=== PATIENT | male | born 1955 | race Caucasian/White ===

== ENCOUNTER 2017-10-30 11:22 | Emergency (ER) | payer BC ==
[2017-10-30] MEDS ORDERED: Albuterol/Ipratropium 3.0-0.5 MG/3 ML Neb Soln NEB ONE (12:00)
[2017-10-30] MEDS ORDERED: predniSONE 20 MG Tab PO STA (12:01)
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
[2017-10-30] MEDS ORDERED: Diltiazem 25 MG/5 ML SDV IVPUSH STA (12:39)
[2017-10-30] MEDS ORDERED: Diltiazem 125 MG in Sodium Chloride 0.9% 100 ML IV SCH (12:45)
[2017-10-30] MEDS ORDERED: Rivaroxaban 10 MG Tab PO STA (13:03)
== END 2017-10-30 13:30 | disposition home or self-care (01) ==
LOC: JD.ED 11:22
DX: J45.901 Unspecified asthma with (acute) exacerbation (principal); M06.9 Rheumatoid arthritis, unspecified; I48.91 Unspecified atrial fibrillation; I10 Essential (primary) hypertension; K21.9 Gastro-esophageal reflux disease without esophagitis; Z79.899 Other long term (current) drug therapy; Z87.442 Personal history of urinary calculi
CPT/HCPCS: 93005; 94640; 99285; A9270; 93010

== ENCOUNTER 2017-10-31 00:31 | Inpatient (IN) | payer BC ==
[2017-10-31] MEDS ORDERED: Diltiazem 25 MG/5 ML SDV IVPUSH ONE ×2 (00:56→02:25)
[2017-10-31] MEDS ORDERED: Diltiazem 125 MG/25 ML SDV ONE (01:03)
[2017-10-31] MEDS ORDERED: oxyCODONE 5 MG Tab PO ONE (01:32)
[2017-10-31] MEDS ORDERED: Verapamil 120 MG Tab.ER PO ONE (02:22)
--- NOTE | 2017-10-31 02:22 | EDM.PDOC ---
ED HPI GENERAL MEDICAL PROBLEM - General Chief Complaint: Cardiovascular Problem Stated Complaint: AFIB ISSUES SOB Time Seen by Provider: 10/31/17 00:35 - History of Present Illness INITIAL COMMENTS - FREE TEXT/NARRATIVE: 62-year-old male presents to the emergency room with problems with his A. fib. The patient's pulse is been running quite high for several days probably longer he was seen by his information management manager yesterday and he was noted to have a very high pulse rate is information management manager wanted to admit him to the hospital. The patient is not having any chest pressure or any discomfort with this he feels weaker than normal. He was restarted on his Zaroxolyn yesterday it is uncertain why he was off anticoagulation for a while. Back Pain Score (Numeric/FACES): 7 - Related Data Allergies Allergy/AdvReac Type Severity Reaction Status Date / Time No Known Allergies Allergy Verified 10/31/17 00:38 Home Meds: Home Meds Adalimumab [Humira] 40 mg INJECT ASDIRECTED 10/30/17 [History] Albuterol [Ventolin HFA] 1 - 2 puff INH ASDIRECTED PRN 10/30/17 [History] Calcium Carbonate [Calcium] 1,000 mg PO DAILY 10/30/17 [History] Cholecalciferol (Vitamin D3) [Vitamin D3] 10,000 unit PO DAILY 10/30/17 [History ] Cyclobenzaprine [Flexeril] 10 mg PO DAILY 10/30/17 [History] Fluconazole [Diflucan] 200 mg PO DAILY 10/30/17 [History] Folic Acid 3 mg PO DAILY 10/30/17 [History] Hydrocortisone 30 mg PO TID 10/30/17 [History] Leflunomide 20 mg PO DAILY 10/30/17 [History] Omeprazole 20 mg PO BID 10/30/17 [History] Potassium Chloride 10 meq PO BID 10/30/17 [History] Pregabalin [Lyrica] 15 mg PO DAILY 10/30/17 [History] Rivaroxaban [Xarelto] 1 tab PO DAILY #15 tablet 10/30/17 [Rx] Sennosides/Docusate Sodium [Senna-S] 8.6 mg PO ASDIRECTED 10/30/17 [History] Tamsulosin [Flomax] 0.4 mg PO DAILY 10/30/17 [History] Torsemide 100 mg PO DAILY 10/30/17 [History] Valsartan 320 mg PO DAILY 10/30/17 [History] Verapamil [Calan SR] 180 mg PO BID 10/30/17 [History] oxyCODONE 15 mg PO ASDIRECTED 10/30/17 [History] oxyCODONE HCl [oxyCODONE] 30 mg PO ASDIRECTED 10/30/17 [History] predniSONE [Prednisone] 1 tab PO DAILY #5 tablet 10/30/17 [Rx] Past Medical History HEENT History: Reports: None Cardiovascular History: Reports: Afib, Hypertension Respiratory History: Reports: Asthma, Sleep Apnea Gastrointestinal History: Reports: GERD Genitourinary History: Reports: BPH, Renal Calculus Musculoskeletal History: Reports: RA Other Musculoskeletal History: 4 back surgeries and fusion of back Neurological History: Reports: None 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, Obesity/BMI 30+ Other Endocrine/Metabolic History: gammaglobulin defieciency Immunologic History: Reports: Immunosuppression - Past Surgical History HEENT Surgical History: Reports: Oral Surgery, Tonsillectomy Cardiovascular Surgical History: Reports: None Respiratory Surgical History: Reports: None GI Surgical History: Reports: None Endocrine Surgical History: Reports: None Neurological Surgical History: Reports: C-Spine, Lumbar Spine, Other (See Below) Musculoskeletal Surgical History: Reports: Other (See Below) Other Musculoskeletal Surgeries/Procedures:: L4-L5 fusion, Social & Family History - Family History Family Medical History: Noncontributory - Tobacco Use Smoking Status *Q: Never Smoker - Caffeine Use Caffeine Use: Reports: Coffee - Recreational Drug Use Recreational Drug Use: No - Living Situation & Occupation Living situation: Reports: , with Spouse Occupation: Employed (Safety HSE) ED ROS GENERAL - Review of Systems Review Of Systems: See Below Constitutional: Reports: No Symptoms HEENT: Reports: No Symptoms Respiratory: Reports: No Symptoms Cardiovascular: Reports: Dyspnea on Exertion. Denies: Chest Pain, Palpitations , Syncope Endocrine: Reports: No Symptoms GI/Abdominal: Reports: No Symptoms : Reports: No Symptoms Musculoskeletal: Reports: No Symptoms Skin: Reports: No Symptoms Neurological: Reports: No Symptoms ED EXAM, GENERAL - Physical Exam Exam: See Below Exam Limited By: No Limitations General Appearance: Alert, No Apparent Distress Eye Exam: Bilateral Eye: Normal Inspection Ears: Normal External Exam, Normal Canal, Normal TMs Nose: Normal Inspection, Normal Mucosa, No Blood Throat/Mouth: Normal Inspection, Normal Lips, Normal Teeth, Normal Gums, Normal Oropharynx, Normal Voice, No Airway Compromise Head: Atraumatic, Normocephalic Neck: Normal Inspection, Supple, Non-Tender, Full Range of Motion. No: Lymphadenopathy (L), Lymphadenopathy (R), Tender Midline Respiratory/Chest: No Respiratory Distress, Lungs Clear, Normal Breath Sounds Cardiovascular: Normal Peripheral Pulses, Tachycardia, Irregularly Irregular GI/Abdominal: Normal Bowel Sounds, Soft, Non-Tender, Other (Significantly obese) Back Exam: Normal Inspection. No: CVA Tenderness (L), CVA Tenderness (R) Extremities: Pedal Edema (2+ pitting bilaterally). No: Normal Inspection ( ) EKG INTERPRETATION EKG Date: 10/31/17 Rhythm: A-Fib (Rate 157) Rate (Beats/Min): 157 [place]: LAD-Left [place] Deviation P-Wave: Absent QRS: Other (Interventricular conduction delay) ST-T: Other (Nonspecific ST-T wave changes most likely due to his rate) QT: Normal Comparison: NA - No Prior EKG Course - Vital Signs Last Recorded V/S: Last Vital Signs Temp 35.8 C 10/31/17 00:38 Pulse 154 H 10/31/17 00:38 Resp 21 H 10/31/17 00:38 BP 138/92 H 10/31/17 02:40 Pulse Ox 96 10/31/17 00:38 - Orders/Labs/Meds Orders: Active Orders 24 hr Category Date Time Status EKG Documentation Completion [RC] STAT Care 10/31/17 00:54 Active Chest 1V Frontal [CR] Stat Exams 10/31/17 00:54 Taken Labs: Laboratory Tests 10/31/17 10/31/17 10/31/17 Range/Units 00:50 00:50 00:50 WBC 9.53 H (4.23-9.07) K/mm3 RBC 4.92 (4.63-6.08) M/mm3 Hgb 13.9 (13.7-17.5) gm/L Hct 39.6 L (40.1-51.0) % MCV 80.5 (79.0-92.2) fl MCH 28.3 (25.7-32.2) pg MCHC 35.1 (32.2-35.5) g/dl RDW Std Deviation 42.8 (35.1-43.9) fL Plt Count 179 (163-337) K/mm3 MPV 10.8 (9.4-12.3) fl Neutrophils % (Manual) 82 H (40-60) % Band Neutrophils % 0 (0-10) % Lymphocytes % (Manual) 15 L (20-40) % Atypical Lymphs % 0 % Monocytes % (Manual) 3 (2-10) % Eosinophils % (Manual) 0 L (0.8-7.0) % Basophils % (Manual) 0 L (0.2-1.2) Platelet Estimate Adequate RBC Morph Comment Normal PT 13.0 H (9.5-12.1) SECONDS INR 1.20 APTT 28 (24-31) SECONDS Sodium 139 (136-145) mEq/L Potassium 4.3 (3.5-5.1) mEq/L Chloride 104 (98-107) mEq/L Carbon Dioxide 22 (21-32) mEq/L Anion Gap 17.3 H (5-15) BUN 19 H (7-18) mg/dL Creatinine 1.3 (0.7-1.3) mg/dL Est Cr Clr Drug Dosing 65.50 mL/min Estimated GFR (MDRD) 56 (>60) mL/min BUN/Creatinine Ratio 14.6 (14-18) Glucose 422 H (80-115) mg/dL POC Glucose (80-115) mg/dL Calcium 8.6 (8.5-10.1) mg/dL Total Bilirubin 0.9 (0.2-1.0) mg/dL AST 12 L (15-37) U/L ALT 25 (16-63) U/L Alkaline Phosphatase 100 (46-116) U/L Troponin I 0.026 (0.00-0.056) ng/mL NT-Pro-B Natriuret Pep (0-125) pg/mL Total Protein 5.8 L (6.4-8.2) g/dl Albumin 3.5 (3.4-5.0) g/dl Globulin 2.3 gm/dL Albumin/Globulin Ratio 1.5 (1-2) TSH 3rd Generation 0.345 L (0.358-3.74) uIU/mL 10/31/17 10/31/17 Range/Units 00:50 04:19 WBC (4.23-9.07) K/mm3 RBC (4.63-6.08) M/mm3 Hgb (13.7-17.5) gm/L Hct (40.1-51.0) % MCV (79.0-92.2) fl MCH (25.7-32.2) pg MCHC (32.2-35.5) g/dl RDW Std Deviation (35.1-43.9) fL Plt Count (163-337) K/mm3 MPV (9.4-12.3) fl Neutrophils % (Manual) (40-60) % Band Neutrophils % (0-10) % Lymphocytes % (Manual) (20-40) % Atypical Lymphs % % Monocytes % (Manual) (2-10) % Eosinophils % (Manual) (0.8-7.0) % Basophils % (Manual) (0.2-1.2) Platelet Estimate RBC Morph Comment PT (9.5-12.1) SECONDS INR APTT (24-31) SECONDS Sodium (136-145) mEq/L Potassium (3.5-5.1) mEq/L Chloride (98-107) mEq/L Carbon Dioxide (21-32) mEq/L Anion Gap (5-15) BUN (7-18) mg/dL Creatinine (0.7-1.3) mg/dL Est Cr Clr Drug Dosing mL/min Estimated GFR (MDRD) (>60) mL/min BUN/Creatinine Ratio (14-18) Glucose (80-115) mg/dL POC Glucose 299 H (80-115) mg/dL Calcium (8.5-10.1) mg/dL Total Bilirubin (0.2-1.0) mg/dL AST (15-37) U/L ALT (16-63) U/L Alkaline Phosphatase (46-116) U/L Troponin I (0.00-0.056) ng/mL NT-Pro-B Natriuret Pep 2186 H (0-125) pg/mL Total Protein (6.4-8.2) g/dl Albumin (3.4-5.0) g/dl Globulin gm/dL Albumin/Globulin Ratio (1-2) TSH 3rd Generation (0.358-3.74) uIU/mL Meds: Medications Discontinued Medications Generic Name Dose Route Start Last Admin Trade Name Jacklyn PRN Reason Stop Dose Admin Diltiazem HCl 20 mg 10/31/17 00:56 10/31/17 01:10 Diltiazem IVPUSH 10/31/17 00:57 20 mg ONETIME ONE Administration Diltiazem HCl Confirm 10/31/17 01:03 10/31/17 01:10 Diltiazem Administered 10/31/17 01:04 Not Given Dose 125 mg .ROUTE .STK-MED ONE Diltiazem HCl 10 mg 10/31/17 02:25 10/31/17 02:42 Diltiazem IVPUSH 10/31/17 02:26 10 mg ONETIME ONE Administration Oxycodone HCl 30 mg 10/31/17 01:32 10/31/17 01:39 Oxycodone PO 10/31/17 01:33 30 mg ONETIME ONE Administration Verapamil HCl 240 mg 10/31/17 02:22 10/31/17 02:40 Calan Sr PO 10/31/17 02:23 240 mg ONETIME ONE Administration - Re-Assessments/Exams Free Text/Narrative Re-Assessment/Exam: 10/31/17 05:10 Initially EKG was obtained which shows atrial fibrillation RVR blood pressure was stable he received 20 mg IV diltiazem his rate did improve with this briefly. His meds are reviewed he was given 240 mg of verapamil normally he takes 180 mg of verapamil twice daily to 40 twice a day would be a maximum dose. Laboratory evaluation was done. Normal electrolytes TSH is slightly suppressed BNP is almost 2200 troponin normal blood sugar was quite elevated in the low 400s. His pulse stayed in the 1 teens to the 140s he didn't feel that much better. Case was discussed with Dr. Nice our hospitalist who agreed on admission. Departure - Departure Time of Disposition: 05:00 Disposition: Admitted As Inpatient 67 Clinical Impression: Atrial fibrillation with rapid ventricular response, Congestive heart failure, Hyperglycemia Referrals: PCP,None [Primary Care Provider] - Forms: ED Department Discharge - My Orders Last 24 Hours: My Active Orders 10/31/17 00:54 EKG Documentation Completion [RC] STAT Chest 1V Frontal [CR] Stat - Assessment/Plan Last 24 Hours: My Active Orders 10/31/17 00:54 EKG Documentation Completion [RC] STAT Chest 1V Frontal [CR] Stat
[2017-10-31] MEDS ORDERED: Potassium Chloride 20 MEQ Tab.ER PO ONE (05:03)
[2017-10-31] MEDS ORDERED: Furosemide 40 MG/4 ML VIAL IVPUSH ONE (05:03)
[2017-10-31] MEDS: oxyCODONE 5 MG Tab PO PRN ×2 (06:04→09:36)
[2017-10-31] MEDS ORDERED: Metoprolol Tartrate 5 MG in Sodium Chloride 0.9% 50 ML IV ONE (06:05)
[2017-10-31] MEDS ORDERED: Metoprolol Tartrate 5 MG/5 ML SDV IVPUSH ONE (06:08)
--- NOTE | 2017-10-31 08:48 | PCM.HP ---
<Jaylin Reynolds - Last Filed: 10/31/17 16:25> H&P History of Present Illness - General Date of Service: 10/31/17 Admit Problem/Dx: Admission Diagnosis/Problem Admission Diagnosis/Problem Atrial fibrillation Source of Information: Patient, Old Records - History of Present Illness Initial Comments - Free Text/Narative: This is a 62 y/o male with recent visit to ED on 10/30/17 and 10/31/17 with PMHx significant for afib, HTN, RA, Asthma, sleep apnea, GERD, BPH, Montrose's disease , obesity, gammaglobulin deficiency, multiple back and neck surgeries who comes in for weakness and in afib with RVR. His work-up in the ED included CBC that was remarkable for WBC 9.53, neutrophils 82%. CMP remarkable for Anion gap 17.3, BUN 19, eGFR 56, glucose 422. INR was 1.20. TSH was 0.345. BNP was 2186. CXR ordered in ED and read as nothing acute. Patient reports that he has been feeling weak and "not like myself" for several days. He was in ED on 10/30/17 and found to be in afib (patient has hx of afib diagnosed 17 years ago). Patient declined admission at that time. He presented back to the ED on 10/31/17 with increased weakness and "not feeling well". Per ED records, patient was given Rx for Xarelto 15 mg po daily and prednisone 20 mg daily on 10/30/17. He is subsequently admitted to ICU. He is a never smoker. He is a full code. PCP is Dr. Alejandro Anand in [place], [place] and pecan grower is Dr. Alejandro Garcia. Back Pain Score (Numeric/FACES): 5 knees Pain Score (Numeric/FACES): 5 - Related Data Allergies/Adverse Reactions: Allergies Allergy/AdvReac Type Severity Reaction Status Date / Time No Known Allergies Allergy Verified 10/31/17 00:38 Home Medications: Home Meds Adalimumab [Humira] 40 mg INJECT ASDIRECTED 10/30/17 [History] Albuterol [Ventolin HFA] 1 - 2 puff INH ASDIRECTED PRN 10/30/17 [History] Calcium Carbonate [Calcium] 1,000 mg PO DAILY 10/30/17 [History] Cholecalciferol (Vitamin D3) [Vitamin D3] 10,000 unit PO DAILY 10/30/17 [History ] Cyclobenzaprine [Flexeril] 10 mg PO DAILY 10/30/17 [History] Folic Acid 3 mg PO DAILY 10/30/17 [History] Hydrocortisone 30 mg PO TID 10/30/17 [History] Leflunomide 20 mg PO SUTUWETHSA 10/30/17 [History] Omeprazole 20 mg PO BID 10/30/17 [History] Rivaroxaban [Xarelto] 1 tab PO DAILY #15 tablet 10/30/17 [Rx] Sennosides/Docusate Sodium [Senna-S] 8.6 mg PO ASDIRECTED 10/30/17 [History] Tamsulosin [Flomax] 0.4 mg PO DAILY 10/30/17 [History] Torsemide 100 mg PO DAILY 10/30/17 [History] Valsartan 320 mg PO DAILY 10/30/17 [History] Verapamil [Calan SR] 180 mg PO BID 10/30/17 [History] oxyCODONE 15 mg PO Q4H 10/30/17 [History] oxyCODONE HCl [oxyCODONE] 30 mg PO Q5H 10/30/17 [History] Leflunomide 40 mg PO MOFR 10/31/17 [History] Potassium Chloride [Klor-Con M20] 20 meq PO BID 10/31/17 [History] Pregabalin [Lyrica] 150 mg PO DAILY 10/31/17 [History] Past Medical History HEENT History: Reports: None Cardiovascular History: Reports: Afib, Hypertension Respiratory History: Reports: Asthma, Sleep Apnea Gastrointestinal History: Reports: GERD Genitourinary History: Reports: BPH, Renal Calculus Musculoskeletal History: Reports: RA Other Musculoskeletal History: 4 back surgeries and fusion of back Neurological History: Reports: None Endocrine/Metabolic History: Reports: Montrose's Disease, Obesity/BMI 30+ Other Endocrine/Metabolic History: gammaglobulin defieciency Immunologic History: Reports: Immunosuppression - Past Surgical History HEENT Surgical History: Reports: Oral Surgery, Tonsillectomy Cardiovascular Surgical History: Reports: None Respiratory Surgical History: Reports: None GI Surgical History: Reports: None Endocrine Surgical History: Reports: None Neurological Surgical History: Reports: C-Spine, Lumbar Spine, Other (See Below) Musculoskeletal Surgical History: Reports: Other (See Below) Other Musculoskeletal Surgeries/Procedures:: L4-L5 fusion, Social & Family History - Family History Family Medical History: Noncontributory - Tobacco Use Smoking Status *Q: Never Smoker - Caffeine Use Caffeine Use: Reports: Coffee - Alcohol Use Days Per Week of Alcohol Use: 1 Number of Drinks Per Day: 1 Total Drinks Per Week: 1 - Recreational Drug Use Recreational Drug Use: No - Living Situation & Occupation Living situation: Reports: , with Spouse Occupation: Employed ([employer]) H&P Review of Systems - Review of Systems: Review Of Systems: See Below General: Reports: Fever, Weakness HEENT: Reports: No Symptoms. Denies: Headaches Pulmonary: Reports: Shortness of Breath. Denies: Cough Cardiovascular: Reports: Dyspnea on Exertion, Edema (chronic for which he wears compression stockings ). Denies: Chest Pain, Palpitations Gastrointestinal: Reports: No Symptoms. Denies: Abdominal Pain, Constipation, Diarrhea, Nausea, Vomiting Genitourinary: Reports: Frequency. Denies: Dysuria, Burning Musculoskeletal: Reports: Back Pain (chronic ), Joint Pain (chronic with RA ) Skin: Reports: No Symptoms Psychiatric: Reports: No Symptoms. Denies: Confusion, Depression, Anxiety Neurological: Reports: No Symptoms. Denies: Confusion, Dizziness, Headache Hematologic/Lymphatic: Reports: No Symptoms Immunologic: Reports: No Symptoms Review of Systems Comment:: Patient also reports polydipsia. Denies polyphagia Exam - Exam Exam: See Below - Vital Signs Vital Signs: Last Vital Signs Temp 97.7 F 10/31/17 08:00 Pulse 115 H 10/31/17 06:17 Resp 17 10/31/17 08:00 BP 125/96 H 10/31/17 08:29 Pulse Ox 98 10/31/17 08:00 Weight: 127.913 kg - Exam Quality Assessment: DVT Prophylaxis. No: Supplemental Oxygen General: Alert, Oriented, Cooperative HEENT: EOMI, Pupils Equal, Pupils Reactive Neck: Supple (obese), Trachea Midline. No: Lymphadenopathy Lungs: Normal Respiratory Effort, Wheezing (b/l inspiratory and expiratory ). No: Crackles, Rales Cardiovascular: Regular Rate (alternating with tachycardia ), Normal S1, Normal S2, Irregular Rhythm GI/Abdominal Exam: Normal Bowel Sounds, Soft, Non-Tender, No Distention (Male) Exam: Deferred Rectal (Males) Exam: Deferred Back Exam: Normal Inspection, Full Range of Motion Extremities: Normal Inspection, Normal Range of Motion, Non-Tender, Pedal Edema (1+ b/l LE ) Peripheral Pulses: 1+: Radial (L), Radial (R), Posterior Tibial (L), Posterior Tibial (R), Dorsalis Pedis (L), Dorsalis Pedis (R) Skin: Warm, Dry, Intact Neurological: Cranial Nerves Intact, Strength Equal Bilateral Neuro Extensive - Mental Status: Alert, Oriented x3, Normal Mood/Affect, Normal Cognition, Memory Intact Psychiatric: Alert, Normal Affect, Normal Mood - Patient Data Lab Results Last 24 hrs: Laboratory Results - last 24 hr 10/31/17 10/31/17 10/31/17 Range/Units 00:50 00:50 00:50 WBC 9.53 H (4.23-9.07) K/mm3 RBC 4.92 (4.63-6.08) M/mm3 Hgb 13.9 (13.7-17.5) gm/L Hct 39.6 L (40.1-51.0) % MCV 80.5 (79.0-92.2) fl MCH 28.3 (25.7-32.2) pg MCHC 35.1 (32.2-35.5) g/dl RDW Std Deviation 42.8 (35.1-43.9) fL Plt Count 179 (163-337) K/mm3 MPV 10.8 (9.4-12.3) fl Neutrophils % (Manual) 82 H (40-60) % Band Neutrophils % 0 (0-10) % Lymphocytes % (Manual) 15 L (20-40) % Atypical Lymphs % 0 % Monocytes % (Manual) 3 (2-10) % Eosinophils % (Manual) 0 L (0.8-7.0) % Basophils % (Manual) 0 L (0.2-1.2) Platelet Estimate Adequate RBC Morph Comment Normal PT 13.0 H (9.5-12.1) SECONDS INR 1.20 APTT 28 (24-31) SECONDS Sodium 139 (136-145) mEq/L Potassium 4.3 (3.5-5.1) mEq/L Chloride 104 (98-107) mEq/L Carbon Dioxide 22 (21-32) mEq/L Anion Gap 17.3 H (5-15) BUN 19 H (7-18) mg/dL Creatinine 1.3 (0.7-1.3) mg/dL Est Cr Clr Drug Dosing 65.50 mL/min Estimated GFR (MDRD) 56 (>60) mL/min BUN/Creatinine Ratio 14.6 (14-18) Glucose 422 H (80-115) mg/dL POC Glucose (80-115) mg/dL Calcium 8.6 (8.5-10.1) mg/dL Total Bilirubin 0.9 (0.2-1.0) mg/dL AST 12 L (15-37) U/L ALT 25 (16-63) U/L Alkaline Phosphatase 100 (46-116) U/L Troponin I 0.026 (0.00-0.056) ng/mL NT-Pro-B Natriuret Pep (0-125) pg/mL Total Protein 5.8 L (6.4-8.2) g/dl Albumin 3.5 (3.4-5.0) g/dl Globulin 2.3 gm/dL Albumin/Globulin Ratio 1.5 (1-2) TSH 3rd Generation 0.345 L (0.358-3.74) uIU/mL 10/31/17 10/31/17 Range/Units 00:50 04:19 WBC (4.23-9.07) K/mm3 RBC (4.63-6.08) M/mm3 Hgb (13.7-17.5) gm/L Hct (40.1-51.0) % MCV (79.0-92.2) fl MCH (25.7-32.2) pg MCHC (32.2-35.5) g/dl RDW Std Deviation (35.1-43.9) fL Plt Count (163-337) K/mm3 MPV (9.4-12.3) fl Neutrophils % (Manual) (40-60) % Band Neutrophils % (0-10) % Lymphocytes % (Manual) (20-40) % Atypical Lymphs % % Monocytes % (Manual) (2-10) % Eosinophils % (Manual) (0.8-7.0) % Basophils % (Manual) (0.2-1.2) Platelet Estimate RBC Morph Comment PT (9.5-12.1) SECONDS INR APTT (24-31) SECONDS Sodium (136-145) mEq/L Potassium (3.5-5.1) mEq/L Chloride (98-107) mEq/L Carbon Dioxide (21-32) mEq/L Anion Gap (5-15) BUN (7-18) mg/dL Creatinine (0.7-1.3) mg/dL Est Cr Clr Drug Dosing mL/min Estimated GFR (MDRD) (>60) mL/min BUN/Creatinine Ratio (14-18) Glucose (80-115) mg/dL POC Glucose 299 H (80-115) mg/dL Calcium (8.5-10.1) mg/dL Total Bilirubin (0.2-1.0) mg/dL AST (15-37) U/L ALT (16-63) U/L Alkaline Phosphatase (46-116) U/L Troponin I (0.00-0.056) ng/mL NT-Pro-B Natriuret Pep 2186 H (0-125) pg/mL Total Protein (6.4-8.2) g/dl Albumin (3.4-5.0) g/dl Globulin gm/dL Albumin/Globulin Ratio (1-2) TSH 3rd Generation (0.358-3.74) uIU/mL Result Diagrams: 10/31/17 00:50 10/31/17 00:50 Problem List Initiated/Reviewed/Updated: Yes Orders Last 24hrs: Active Orders 24 hr Category Date Time Status Patient Status [ADT] Stat ADT 10/31/17 05:08 Active Accu Check [Blood Glucose Check, Bedside] [RC] BIDAC Care 10/31/17 09:00 Active ADA Diabetic [[place] [employer] Diet] [DIET Diet 10/31/17 Breakfast Active ] Chest 1V Frontal [CR] Stat Exams 10/31/17 00:54 Taken Tamsulosin [Flomax] Med 10/31/17 09:00 Active 0.4 mg PO DAILY Verapamil [Calan SR] Med 10/31/17 09:00 Active 240 mg PO BID oxyCODONE Med 10/31/17 05:42 Active 30 mg PO Q4H PRN Code Status [Resuscitation Status] Routine Resus Stat 10/31/17 05:47 Ordered Medication Orders Oxycodone HCl (Oxycodone) 30 mg PO Q4H PRN PRN Reason: Pain Last Admin: 10/31/17 06:04 Dose: 30 mg Tamsulosin HCl (Flomax) 0.4 mg PO DAILY [facility] Last Admin: 10/31/17 08:29 Dose: 0.4 mg Verapamil HCl (Calan Sr) 240 mg PO BID [facility] Last Admin: 10/31/17 08:29 Dose: 240 mg Assessment/Plan Comment:: A/P Acute Atrial fibrillation * Patient has hx of afib that was diagnosed approximately 17 years ago * Per pecan grower records, patient declined anticoagulation at last visit in 2015 * Current CHADSVASc score is 2 --> Rx for xarelto 15 mg po daily provided at ED visit on 10/30/17, will continue during admission * Received Cardizem bolus in ED * Verapamil 180 mg BID at home; was increased to 240 mg BID in ED; will adjust back to home dose and monitor * Troponin negative * TSH 0.345 --> recommend repeat TSH at discharge * 2D Echo ordered and pending Elevated BNP * BNP 2186 in ED * 2D Echo ordered with results pending * Records per patient's pecan grower indicated last Echo was in 2015 and read as EF 58.6%, severe left atrium dilation and moderate right atrium dilation, mild concentric LVH * Based on echo performed during admission, heart failure core measures will be evaluated * Patient denies PND, orthopnea but does have chronic edema * Patient's home meds include torsemide 100 mg po daily, will continue during admission Hyperglycemia * Glucose 422 in ED * Patient denies hx of diabetes; he has been experiencing polydipsia, polyuria * Will order Hgb A1c --> 10.7 --> will consult dietitian and patient educator * Recommend Jardiance at discharge * Discussed lifestyle modifications; patient reports that he has lost approximately 50# in past year with increased activity but does admit to needing to work on his diet * AccuChecks QID (AC and HS) with Low dose SSI * Diabetic diet * Monitor Renal insufficiency * Cr 1.3 and eGFR 56 in ED * PCP records indicate Cr 1.15 and eGFR 68.7 at visit on 10/06/17 * Monitor Leukocytosis, mild * WBC 9.53 in ED * Likely 2/2 current medical state and steroids * Patient reports fever at home; he has been afebrile in ED and during admission * Monitor Resolved: Weakness, Acute, Resolved * Exacerbated by current medical state * Nursing reports patient is independent in room Chronic: Afib HTN RA --> Patient is on Humira and leflunomide Asthma Sleep apnea GERD BPH Sergey's disease --> will continue Rx for prednisone 20 mg po daily and hydrocortisone 30 mg po TID will be held Obesity Gammaglobulin deficiency --> patient reports he has IVIG infusions every 60-90 days Multiple back and neck surgeries --> he is on chronic narcotis; PDMP verified home dosages, continue during admission Plan: ICU Daily labs Home meds as indicated Heart Healthy, Diabetic diet DVT prophylaxis: Xarelto Consult PT/OT Consult CM/SW Code Status: Full Code PCP: Dr. Alejandro Anand in [place], [place] <Remy Nice T - Last Filed: 10/31/17 19:57> H&P History of Present Illness - General Admit Problem/Dx: Admission Diagnosis/Problem Admission Diagnosis/Problem Atrial fibrillation Exam - Vital Signs Vital Signs: Last Vital Signs Temp 36.1 C 10/31/17 16:00 Pulse 115 H 10/31/17 06:17 Resp 13 10/31/17 16:00 BP 128/86 10/31/17 16:00 Pulse Ox 95 10/31/17 16:00 - Patient Data Lab Results Last 24 hrs: Laboratory Results - last 24 hr 10/31/17 10/31/17 10/31/17 Range/Units 00:50 00:50 00:50 WBC 9.53 H (4.23-9.07) K/mm3 RBC 4.92 (4.63-6.08) M/mm3 Hgb 13.9 (13.7-17.5) gm/L Hct 39.6 L (40.1-51.0) % MCV 80.5 (79.0-92.2) fl MCH 28.3 (25.7-32.2) pg MCHC 35.1 (32.2-35.5) g/dl RDW Std Deviation 42.8 (35.1-43.9) fL Plt Count 179 (163-337) K/mm3 MPV 10.8 (9.4-12.3) fl Neutrophils % (Manual) 82 H (40-60) % Band Neutrophils % 0 (0-10) % Lymphocytes % (Manual) 15 L (20-40) % Atypical Lymphs % 0 % Monocytes % (Manual) 3 (2-10) % Eosinophils % (Manual) 0 L (0.8-7.0) % Basophils % (Manual) 0 L (0.2-1.2) Platelet Estimate Adequate RBC Morph Comment Normal PT 13.0 H (9.5-12.1) SECONDS INR 1.20 APTT 28 (24-31) SECONDS Sodium 139 (136-145) mEq/L Potassium 4.3 (3.5-5.1) mEq/L Chloride 104 (98-107) mEq/L Carbon Dioxide 22 (21-32) mEq/L Anion Gap 17.3 H (5-15) BUN 19 H (7-18) mg/dL Creatinine 1.3 (0.7-1.3) mg/dL Est Cr Clr Drug Dosing 65.50 mL/min Estimated GFR (MDRD) 56 (>60) mL/min BUN/Creatinine Ratio 14.6 (14-18) Glucose 422 H (80-115) mg/dL POC Glucose (80-115) mg/dL Hemoglobin A1c (4.50-6.20) % Calcium 8.6 (8.5-10.1) mg/dL Total Bilirubin 0.9 (0.2-1.0) mg/dL AST 12 L (15-37) U/L ALT 25 (16-63) U/L Alkaline Phosphatase 100 (46-116) U/L Troponin I 0.026 (0.00-0.056) ng/mL NT-Pro-B Natriuret Pep (0-125) pg/mL Total Protein 5.8 L (6.4-8.2) g/dl Albumin 3.5 (3.4-5.0) g/dl Globulin 2.3 gm/dL Albumin/Globulin Ratio 1.5 (1-2) TSH 3rd Generation 0.345 L (0.358-3.74) uIU/mL 10/31/17 10/31/17 10/31/17 Range/Units 00:50 04:19 08:53 WBC (4.23-9.07) K/mm3 RBC (4.63-6.08) M/mm3 Hgb (13.7-17.5) gm/L Hct (40.1-51.0) % MCV (79.0-92.2) fl MCH (25.7-32.2) pg MCHC (32.2-35.5) g/dl RDW Std Deviation (35.1-43.9) fL Plt Count (163-337) K/mm3 MPV (9.4-12.3) fl Neutrophils % (Manual) (40-60) % Band Neutrophils % (0-10) % Lymphocytes % (Manual) (20-40) % Atypical Lymphs % % Monocytes % (Manual) (2-10) % Eosinophils % (Manual) (0.8-7.0) % Basophils % (Manual) (0.2-1.2) Platelet Estimate RBC Morph Comment PT (9.5-12.1) SECONDS INR APTT (24-31) SECONDS Sodium (136-145) mEq/L Potassium (3.5-5.1) mEq/L Chloride (98-107) mEq/L Carbon Dioxide (21-32) mEq/L Anion Gap (5-15) BUN (7-18) mg/dL Creatinine (0.7-1.3) mg/dL Est Cr Clr Drug Dosing mL/min Estimated GFR (MDRD) (>60) mL/min BUN/Creatinine Ratio (14-18) Glucose (80-115) mg/dL POC Glucose 299 H 282 H (80-115) mg/dL Hemoglobin A1c (4.50-6.20) % Calcium (8.5-10.1) mg/dL Total Bilirubin (0.2-1.0) mg/dL AST (15-37) U/L ALT (16-63) U/L Alkaline Phosphatase (46-116) U/L Troponin I (0.00-0.056) ng/mL NT-Pro-B Natriuret Pep 2186 H (0-125) pg/mL Total Protein (6.4-8.2) g/dl Albumin (3.4-5.0) g/dl Globulin gm/dL Albumin/Globulin Ratio (1-2) TSH 3rd Generation (0.358-3.74) uIU/mL 10/31/17 10/31/17 10/31/17 Range/Units 10:50 13:34 17:30 WBC (4.23-9.07) K/mm3 RBC (4.63-6.08) M/mm3 Hgb (13.7-17.5) gm/L Hct (40.1-51.0) % MCV (79.0-92.2) fl MCH (25.7-32.2) pg MCHC (32.2-35.5) g/dl RDW Std Deviation (35.1-43.9) fL Plt Count (163-337) K/mm3 MPV (9.4-12.3) fl Neutrophils % (Manual) (40-60) % Band Neutrophils % (0-10) % Lymphocytes % (Manual) (20-40) % Atypical Lymphs % % Monocytes % (Manual) (2-10) % Eosinophils % (Manual) (0.8-7.0) % Basophils % (Manual) (0.2-1.2) Platelet Estimate RBC Morph Comment PT (9.5-12.1) SECONDS INR APTT (24-31) SECONDS Sodium (136-145) mEq/L Potassium (3.5-5.1) mEq/L Chloride (98-107) mEq/L Carbon Dioxide (21-32) mEq/L Anion Gap (5-15) BUN (7-18) mg/dL Creatinine (0.7-1.3) mg/dL Est Cr Clr Drug Dosing mL/min Estimated GFR (MDRD) (>60) mL/min BUN/Creatinine Ratio (14-18) Glucose (80-115) mg/dL POC Glucose 150 H 264 H (80-115) mg/dL Hemoglobin A1c 10.70 H (4.50-6.20) % Calcium (8.5-10.1) mg/dL Total Bilirubin (0.2-1.0) mg/dL AST (15-37) U/L ALT (16-63) U/L Alkaline Phosphatase (46-116) U/L Troponin I (0.00-0.056) ng/mL NT-Pro-B Natriuret Pep (0-125) pg/mL Total Protein (6.4-8.2) g/dl Albumin (3.4-5.0) g/dl Globulin gm/dL Albumin/Globulin Ratio (1-2) TSH 3rd Generation (0.358-3.74) uIU/mL Result Diagrams: 10/31/17 00:50 10/31/17 00:50 Orders Last 24hrs: Active Orders 24 hr Category Date Time Status Patient Status [ADT] Stat ADT 10/31/17 05:08 Active Ambulate [RC] ASDIRECTED Care 10/31/17 09:37 Active Bedrest Bathroom Privileges [RC] ASDIRECTED Care 10/31/17 09:37 Active Blood Glucose Check, Bedside [RC] QIDACANDBED Care 10/31/17 09:53 Active Cardiac Monitoring [RC] CONTINUOUS Care 10/31/17 09:38 Active Height and Weight [RC] DAILY Care 10/31/17 09:37 Active Intake and Output [RC] QSHIFT Care 10/31/17 09:38 Active May Shower [RC] ASDIRECTED Care 10/31/17 09:37 Active Pulse Oximetry [RC] PRN Care 10/31/17 09:38 Active RT Aerosol Therapy [RC] ASDIRECTED Care 10/31/17 09:49 Active Up ad [place] [RC] ASDIRECTED Care 10/31/17 09:37 Active Up to Chair [RC] ASDIRECTED Care 10/31/17 09:37 Active VTE/DVT Education [RC] PER UNIT ROUTINE Care 10/31/17 09:37 Active Consult to Case Management [CONS] Routine Cons 10/31/17 09:44 Active Consult to Canvas Goods Maker [Consult to Diabetic Nurse Cons 10/31/17 13:37 Active Specialist] [CONS] Routine Consult to Vinegar Maker [CONS] Routine Cons 10/31/17 09:44 Active Consult to Dermatology Teacher [CONS] Routine Cons 10/31/17 09:44 Active Consistent Carbohydrate Diet [DIET] Diet 10/31/17 Breakfast Active Heart Healthy Diet [DIET] Diet 10/31/17 Breakfast Active BASIC METABOLIC PANEL,BMP [CHEM] AM Lab 11/01/17 05:11 Ordered BASIC METABOLIC PANEL,BMP [CHEM] AM Lab 11/02/17 05:11 Ordered BASIC METABOLIC PANEL,BMP [CHEM] AM Lab 11/03/17 05:11 Ordered BASIC METABOLIC PANEL,BMP [CHEM] AM Lab 11/04/17 05:11 Ordered BASIC METABOLIC PANEL,BMP [CHEM] AM Lab 11/05/17 05:11 Ordered BASIC METABOLIC PANEL,BMP [CHEM] AM Lab 11/06/17 05:11 Ordered BASIC METABOLIC PANEL,BMP [CHEM] AM Lab 11/07/17 05:11 Ordered CBC WITH AUTO DIFF [HEME] AM Lab 11/01/17 05:11 Ordered CBC WITH AUTO DIFF [HEME] AM Lab 11/02/17 05:11 Ordered CBC WITH AUTO DIFF [HEME] AM Lab 11/03/17 05:11 Ordered CBC WITH AUTO DIFF [HEME] AM Lab 11/04/17 05:11 Ordered CBC WITH AUTO DIFF [HEME] AM Lab 11/05/17 05:11 Ordered CBC WITH AUTO DIFF [HEME] AM Lab 11/06/17 05:11 Ordered CBC WITH AUTO DIFF [HEME] AM Lab 11/07/17 05:11 Ordered LIPID PANEL [CHEM] AM Lab 11/01/17 05:11 Ordered Acetaminophen [Tylenol] Med 10/31/17 09:44 Active 650 mg PO Q4H PRN Albuterol [Proventil HFA] Med 10/31/17 09:54 Active 0 gm INH ASDIRECTED PRN Albuterol/Ipratropium [DuoNeb 3.0-0.5 MG/3 ML] Med 10/31/17 09:44 Active 3 ml NEB Q4H PRN Bisacodyl [Dulcolax] Med 10/31/17 09:44 Active 5 mg PO DAILY PRN Calcium Carbonate [Tums] Med 10/31/17 10:00 Active 1,000 mg PO DAILY Cholecalciferol (Vitamin D3) [Vitamin D3] Med 10/31/17 12:00 Active 10,000 unit PO DAILY Cyclobenzaprine [Flexeril] Med 10/31/17 11:15 Active 10 mg PO BEDTIME PRN Docusate Sodium/Sennosides [Senna Plus] Med 10/31/17 21:00 Active 1 tab PO BID Docusate Sodium/Sennosides [Senna Plus] Med 10/31/17 09:44 Active 1 tab PO BID PRN Folic Acid Med 10/31/17 10:00 Active 3 mg PO DAILY HYDROmorphone [Dilaudid] Med 10/31/17 09:44 Active 0.5 mg IVPUSH Q2H PRN Hydrocortisone [Cortef] Med 10/31/17 15:00 Hold 30 mg PO TID Insulin Aspart [NovoLOG] Med 10/31/17 11:00 Active See Protocol SUBCUT QIDACANDBED Losartan [Cozaar] Med 10/31/17 12:00 Active 150 mg PO DAILY Magnesium Hydroxide [Milk of Magnesia] Med 10/31/17 09:44 Active 30 ml PO Q12H PRN Pantoprazole [ProTONIX] Med 10/31/17 10:00 Active 40 mg PO BID Patient's Own Medication [Ptom] Med 10/31/17 12:00 Active 0 each PO MoFr Patient's Own Medication [Ptom] Med 11/01/17 09:00 Active 0 each PO SuTuWeThSa Polyethylene Glycol 3350 [MiraLAX] Med 10/31/17 09:44 Active 17 gm PO DAILY PRN Potassium Chloride [Klor-Con 10] Med 10/31/17 10:00 Active 10 meq PO BID Pregabalin [Lyrica] Med 10/31/17 12:00 Active 150 mg PO DAILY Promethazine [Phenergan] Med 10/31/17 09:44 Active 25 mg PO Q6H PRN Promethazine [Phenergan] 6.25 mg Med 10/31/17 09:44 Active Sodium Chloride 0.9% [Normal Saline] 50 ml IV Q6H Rivaroxaban [Xarelto] Med 10/31/17 10:00 Active 15 mg PO DAILY Tamsulosin [Flomax] Med 10/31/17 11:30 Active 0.4 mg PO DAILY Temazepam [Restoril] Med 10/31/17 09:44 Active 7.5 mg PO BEDTIME PRN Torsemide [Demadex] Med 10/31/17 12:00 Active 100 mg PO DAILY Verapamil [Calan SR] Med 10/31/17 11:00 Active 180 mg PO BID oxyCODONE Med 10/31/17 17:00 Active 45 mg PO Q4H predniSONE Med 10/31/17 12:00 Active 20 mg PO DAILY Code Status [Resuscitation Status] Routine Resus Stat 10/31/17 05:47 Ordered Medication Orders Acetaminophen (Tylenol) 650 mg PO Q4H PRN PRN Reason: Pain (Mild 1-3)/fever Albuterol (Proventil Hfa) 0 gm INH ASDIRECTED PRN PRN Reason: Wheezing Albuterol/Ipratropium (Duoneb 3.0-0.5 Mg/3 Ml) 3 ml NEB Q4H PRN PRN Reason: Shortness Of Breath/wheezing Bisacodyl (Dulcolax) 5 mg PO DAILY PRN PRN Reason: Constipation Calcium Carbonate/Glycine (Tums) 1,000 mg PO DAILY [facility] Last Admin: 10/31/17 14:30 Dose: Not Given Cholecalciferol (Vitamin D3) 10,000 unit PO DAILY [facility] Last Admin: 10/31/17 13:38 Dose: 10,000 unit Cyclobenzaprine HCl (Flexeril) 10 mg PO BEDTIME PRN PRN Reason: MUSCLE SPASMS Folic Acid (Folic Acid) 3 mg PO DAILY [facility] Last Admin: 10/31/17 10:57 Dose: 3 mg Hydrocortisone (Cortef) 30 mg PO TID [facility] Hydromorphone HCl (Dilaudid) 0.5 mg IVPUSH Q2H PRN PRN Reason: Pain (severe 7-10) Last Admin: 10/31/17 14:18 Dose: 0.5 mg Promethazine HCl 6.25 mg/ (Sodium Chloride) 50.25 mls @ 100 mls/hr IV Q6H PRN PRN Reason: Nausea/Vomiting Insulin Aspart (Novolog) 0 unit SUBCUT QIDACANDBED [facility]; Protocol Last Admin: 10/31/17 17:52 Dose: 3 unit Admin: 10/31/17 14:07 Dose: 1 unit Losartan Potassium (Cozaar) 150 mg PO DAILY [facility] Last Admin: 10/31/17 13:43 Dose: 150 mg Magnesium Hydroxide (Milk Of Magnesia) 30 ml PO Q12H PRN PRN Reason: Constipation Oxycodone HCl (Oxycodone) 45 mg PO Q4H [facility] Last Admin: 10/31/17 19:49 Dose: Pantoprazole Sodium (Protonix) 40 mg PO BID [facility] Last Admin: 10/31/17 10:57 Dose: 40 mg Leflunomide 20 Mg 0 each PO SuTuWeThSa [facility] Leflunomide 20 Mg 0 each PO MoFr [facility] Last Admin: 10/31/17 12:05 Dose: Polyethylene Glycol (Miralax) 17 gm PO DAILY PRN PRN Reason: Constipation Potassium Chloride (Klor-Con 10) 10 meq PO BID [facility] Last Admin: 10/31/17 10:57 Dose: 10 meq Prednisone (Prednisone) 20 mg PO DAILY [facility] Stop: 11/04/17 12:01 Last Admin: 10/31/17 13:41 Dose: 20 mg Pregabalin (Lyrica) 150 mg PO DAILY [facility] Last Admin: 10/31/17 13:39 Dose: 150 mg Promethazine HCl (Phenergan) 25 mg PO Q6H PRN PRN Reason: Nausea/Vomiting Rivaroxaban (Xarelto) 15 mg PO DAILY [facility] Last Admin: 10/31/17 13:54 Dose: 15 mg Senna/Docusate Sodium (Senna Plus) 1 tab PO BID PRN PRN Reason: Constipation Last Admin: 10/31/17 10:59 Dose: 1 tab Senna/Docusate Sodium (Senna Plus) 1 tab PO BID [facility] Tamsulosin HCl (Flomax) 0.4 mg PO DAILY [facility] Last Admin: 10/31/17 11:20 Dose: Temazepam (Restoril) 7.5 mg PO BEDTIME PRN PRN Reason: Sleep Torsemide (Demadex) 100 mg PO DAILY [facility] Last Admin: 10/31/17 15:58 Dose: Not Given Verapamil HCl (Calan Sr) 180 mg PO BID [facility] Last Admin: 10/31/17 11:16 Dose: Assessment/Plan Comment:: The patient was seen and examined at bedside in concert with the PA student. The admission assessment and plans were discussed and agreed upon with me. Spoke to the patient and expressed my concerns about his high dose narcotic use along with flexeril and lyrica. Cautioned him on over sedation and respiratory depression if he drinks ETOH and or take Benzos on top of his pain regimen.
[2017-10-31] MEDS ORDERED: Verapamil 120 MG Tab.ER PO SCH (09:00)
[2017-10-31] MEDS ORDERED: Tamsulosin 0.4 MG Cap.ER PO SCH (09:00)
[2017-10-31] MEDS ORDERED: Acetaminophen 325 MG Tab PO PRN (09:44)
[2017-10-31] MEDS ORDERED: Promethazine 6.25 MG in Sodium Chloride 0.9% 50 ML IV PRN (09:44)
[2017-10-31] MEDS ORDERED: Temazepam 7.5 MG Cap PO PRN (09:44)
[2017-10-31] MEDS ORDERED: Docusate Sodium 100 MG Cap PO PRN (09:44)
[2017-10-31] MEDS ORDERED: Promethazine 25 MG Tab PO PRN (09:44)
[2017-10-31] MEDS ORDERED: Magnesium Hydroxide 400 MG/5 ML Susp 30 ML Cup PO PRN (09:44)
[2017-10-31] MEDS ORDERED: Polyethylene Glycol 3350 Powder 17 GM Packet PO PRN (09:44)
[2017-10-31] MEDS ORDERED: Bisacodyl 5 MG Tab PO PRN (09:44)
[2017-10-31] MEDS ORDERED: Albuterol/Ipratropium 3.0-0.5 MG/3 ML Neb Soln NEB PRN (09:44)
[2017-10-31] MEDS ORDERED: Albuterol 6.7 GM Inhaler INH PRN (09:54)
[2017-10-31] MEDS ORDERED: Fluconazole 100 MG Tab PO SCH (10:00)
[2017-10-31] MEDS ORDERED: Cyclobenzaprine 10 MG Tab PO SCH (10:00)
[2017-10-31] MEDS: Folic Acid 1 MG Tab PO SCH (10:57)
[2017-10-31] MEDS: Potassium Chloride 10 MEQ Tab.ER PO SCH ×2 (10:57→20:18)
[2017-10-31] MEDS: Pantoprazole 40 MG Tab.CR PO SCH ×2 (10:57→20:18)
[2017-10-31] MEDS ORDERED: Cyclobenzaprine 10 MG Tab PO PRN (11:15)
[2017-10-31] MEDS: Verapamil 180 MG Tab.ER PO SCH ×2 (11:16→20:20)
[2017-10-31] MEDS: Tamsulosin 0.4 MG Cap.ER PO SCH (11:20)
[2017-10-31] MEDS ORDERED: LEFLUNOMIDE 20 MG PO SCH (12:00)
[2017-10-31] MEDS ORDERED: oxyCODONE 5 MG Tab PO SCH ×2 (13:00)
[2017-10-31] MEDS: Calcium Carbonate 500 MG Tab.Chew PO SCH ×2 (13:35→14:30)
[2017-10-31] MEDS: Cholecalciferol (Vitamin D3) 5,000 UNIT Tab PO SCH (13:38)
[2017-10-31] MEDS: Pregabalin 75 MG Cap PO SCH (13:39)
[2017-10-31] MEDS: predniSONE 20 MG Tab PO SCH (13:41)
[2017-10-31] MEDS: Torsemide 20 MG Tab PO SCH ×2 (13:41→15:58)
[2017-10-31] MEDS: Losartan 100 MG Tab PO SCH (13:43)
[2017-10-31] MEDS: Rivaroxaban 10 MG Tab PO SCH (13:54)
[2017-10-31] MEDS: Insulin Aspart 100 Units/ML 3 ML Pen SUBCUT SCH ×3 (14:07→21:23)
[2017-10-31] MEDS: HYDROmorphone 0.5 MG/0.5 ML SYRINGE IVPUSH PRN ×2 (14:18→21:24)
[2017-10-31] MEDS ORDERED: Hydrocortisone 20 MG Tab PO SCH (15:00)
--- NOTE | 2017-10-31 15:48 | CR ---
Chest: Portable view of the chest was obtained. Comparison: No prior chest x-ray. Heart size is normal. Tortuous thoracic aorta is seen. Previous cervical spine surgery is noted. Lungs are clear without acute parenchymal densities. Impression: 1. Nothing acute is seen on portable chest x-ray. Diagnostic code #2
[2017-11-01] MEDS: Insulin Aspart 100 Units/ML 3 ML Pen SUBCUT SCH ×2 (06:26→11:56)
[2017-11-01] MEDS: HYDROmorphone 0.5 MG/0.5 ML SYRINGE IVPUSH PRN (06:32)
[2017-11-01] MEDS: Verapamil 180 MG Tab.ER PO SCH (09:22)
[2017-11-01] MEDS: Potassium Chloride 10 MEQ Tab.ER PO SCH (09:22)
[2017-11-01] MEDS: Pantoprazole 40 MG Tab.CR PO SCH (09:22)
[2017-11-01] MEDS: Folic Acid 1 MG Tab PO SCH (09:22)
[2017-11-01] MEDS: Calcium Carbonate 500 MG Tab.Chew PO SCH ×2 (09:23→09:36)
[2017-11-01] MEDS: Tamsulosin 0.4 MG Cap.ER PO SCH (09:23)
[2017-11-01] MEDS: Torsemide 20 MG Tab PO SCH (09:23)
[2017-11-01] MEDS: predniSONE 20 MG Tab PO SCH (09:24)
[2017-11-01] MEDS: Cholecalciferol (Vitamin D3) 5,000 UNIT Tab PO SCH (09:24)
[2017-11-01] MEDS: Pregabalin 75 MG Cap PO SCH (09:24)
[2017-11-01] MEDS: Losartan 100 MG Tab PO SCH (09:25)
[2017-11-01] MEDS: Rivaroxaban 10 MG Tab PO SCH (09:26)
[2017-11-01] MEDS: Metoprolol Tartrate 5 MG/5 ML SDV IVPUSH PRN ×2 (10:26→12:51)
--- NOTE | 2017-11-01 13:01 | PCM.DCSUM1 ---
<Jaylin Reynolds - Last Filed: 11/01/17 15:45> Discharge Summary - Hospital Course HPI Initial Comments: This is a 62 y/o male with recent visit to ED on 10/30/17 and 10/31/17 with PMHx significant for afib, HTN, RA, Asthma, sleep apnea, GERD, BPH, Sergey's disease , obesity, gammaglobulin deficiency, multiple back and neck surgeries who comes in for weakness and in afib with RVR. His work-up in the ED included CBC that was remarkable for WBC 9.53, neutrophils 82%. CMP remarkable for Anion gap 17.3, BUN 19, eGFR 56, glucose 422. INR was 1.20. TSH was 0.345. BNP was 2186. CXR ordered in ED and read as nothing acute. Patient reports that he has been feeling weak and "not like myself" for several days. He was in ED on 10/30/17 and found to be in afib (patient has hx of afib diagnosed 17 years ago). Patient declined admission at that time. He presented back to the ED on 10/31/17 with increased weakness and "not feeling well". Per ED records, patient was given Rx for Xarelto 15 mg po daily and prednisone 20 mg daily on 10/30/17. He is subsequently admitted to ICU. He is a never smoker. He is a full code. PCP is Dr. Alejandro Anand in [place], [place] and financial aid officer is Dr. Alejandro Garcia. Diagnosis: Stroke: No Modified Edmondson Scale: No Symptoms at All Modified Edmondson Scale Score: 0 - Discharge Data Discharge Date: 11/01/17 Discharge Disposition: Home, Self-Care 01 Condition: Good - Patient Summary/Data Operative Procedure(s) Performed: None Complications: None Consults: Consultations 10/31/17 09:44 Consult to Case Management [CONS] Routine Consult to Sludge Mill Operator [CONS] Routine Consult to Blasting Contract Miner [CONS] Routine 10/31/17 13:37 Consult to Natural Resources Instructor [Consult to Diabetic Nurse Specialist] [CONS] Routine Labs Pending at D/C: None Recommended Follow-up Testing/Procedures: PCP in 1-2 weeks Outpatient diabetes education Planned Operative Procedure(s) after DC: None Hospital Course: A/P Acute Atrial fibrillation * Patient has hx of afib that was diagnosed approximately 17 years ago * Per financial aid officer records, patient declined anticoagulation at last visit in 2016 * Current CHADSVASc score is 2 --> Rx for xarelto 15 mg po daily provided at ED visit on 10/30/17, will continue during admission * Received Cardizem bolus in ED * Verapamil 180 mg BID at home; was increased to 240 mg BID in ED; will adjust back to home dose and monitor * Troponin negative * TSH 0.345 --> recommend repeat TSH at discharge * 2D Echo read as EF 55%, LV septal wall thickness mildly increased, and mild concentric LVH Elevated BNP * BNP 2186 in ED * 2D Echo read as EF 55%, LV septal wall thickness mildly increased, and mild concentric LVH * Records per patient's financial aid officer indicated last Echo was in 2015 and read as EF 58.6%, severe left atrium dilation and moderate right atrium dilation, mild concentric LVH * Based on echo performed during admission, heart failure core measures will be evaluated --> echo results with no signs of heart failure * Patient denies PND, orthopnea but does have chronic edema * Patient's home meds include torsemide 100 mg po daily, will continue during admission Hyperglycemia * Glucose 422 in ED * Patient denies hx of diabetes; he has been experiencing polydipsia, polyuria * Will order Hgb A1c --> 10.7 --> dietitian and life skills educator saw patient prior to discharge * Recommend Jardiance and Victoza at discharge * Discussed lifestyle modifications; patient reports that he has lost approximately 50# in past year with increased activity but does admit to needing to work on his diet * AccuChecks QID (AC and HS) with Low dose SSI * Diabetic diet * Monitor Leukocytosis, mild * WBC 9.50 today, 9.53 in ED * Likely 2/2 current medical state and steroids * Patient reports fever at home; he has been afebrile in ED and during admission * Monitor Resolved: Weakness, Acute, Resolved * Exacerbated by current medical state * Nursing reports patient is independent in room Renal insufficiency, resolved * Cr 1.1, eGFR > 60 today; Cr 1.3 and eGFR 56 in ED * PCP records indicate Cr 1.15 and eGFR 68.7 at visit on 10/06/17 * Monitor Chronic: Afib HTN RA --> Patient is on Humira and leflunomide Asthma Sleep apnea GERD BPH 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 Alejandro Anand in [facility] Course: Chandan was admitted for management of atrial fibrillation. Patient reported afib was initially diagnosed 17 years ago. He has improved during his stay. His work- up in the ED included CBC that was remarkable for WBC 9.53, neutrophils 82%. CMP remarkable for Anion gap 17.3, BUN 19, eGFR 56, glucose 422. INR was 1.20. TSH was 0.345. BNP was 2186. TSH was 0.345. Troponin negative. CXR ordered in ED and read as nothing acute. EKG in ED showed atrial fibrillation. Patient received Cardizem bolus in ED. Patient takes Verapamil 180 mg BID at home; was increased to 240 mg BID in ED and then adjusted back to home dose. Per financial aid officer records, patient declined anticoagulation at last visit in 2016. Patient's current CHADSVASc score is 2. Rx for xarelto 15 mg po daily provided at ED visit on 10/30/17 and was continued during admission with discharge Rx for xarelto 20 mg po daily. Records per patient's financial aid officer indicated last Echo was in 2016 and read as EF 58.6%, severe left atrium dilation and moderate right atrium dilation, mild concentric LVH. 2D Echo performed during this admission read as EF 55%, LV septal wall thickness mildly increased, and mild concentric LVH. Patient has chronic edema for which he takes torsemide 100 mg po daily; this was continued during admission. 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 Labs during admission significant for hyperglycemia, leukocytosis, and renal insufficiency. Regarding hyperglycemia, Hgb A1c ordered and was 10.7. Patient saw the dietitian and life skills educator and was given prescriptions for Jardiance and Victoza at discharge. Also discussed lifestyle modifications including decreasing caffeine intake; patient reports that he has lost approximately 50# in past year with increased activity but does admit to needing to work on his diet. Regarding leukocytosis, this was likely 2/2 current medical state and chronic steroid use. Patient reported fevers in ED but was afebrile in ED and during admission. Regarding mild renal insufficiency, this resolved. Also discussed patient's daily use of high dose narcotics with recommendation that patient attempt to decrease this amount. Recommend patient see PCP in 1-2 weeks. Recommend repeat TSH per PCP. Patient was instructed to check glucose and vitals 3x/day and to keep log with the results. New/updated medications at discharge: aspirin 81 mg po daily, Jardiance 25 mg po daily, Fentanyl 25 mcg transdermal q 72 hr, Victoza 0.6 mg SC daily for 1 week then increase to Victoza 1.2 mg SC daily, metoprolol tartrate 25 mg po BID, Narcan 4 mg nasal spray prn, MiraLax 17 gm po BID prn constipation, pravastatin 40 mg po q HS, Xarelto 20 mg po daily, verapamil 180 mg po BID. Patient is stable and ready for discharge home today. Patient agreeable to this plan. - Patient Instructions Diet: Usual Diet as Tolerated Activity: As Tolerated Driving: Do Not Drive Showering/Bathing: May Shower Notify Provider of: Fever, Swelling and Redness, Drainage, Nausea and/or Vomiting Other/Special Instructions: - Please take all medications as directed. - Resume all home medications and continue routine activities as tolerated. - Cut down on heavy caffeine intake. - You are high risk for Opioid Overdose. - Consider medical marijuana for pain management. - Check glucose and vitals x3/ day and show log on follow up appointment with your PCP. - Recommend lifestyle modifications: eat properly, exercise regularly and lose weight. - Follow dietary and diabetic education instructions. - Call or follow up with your PCP for any questions or concerns after discharge. - Follow up with your PCP in 1- 2 weeks. - Come back or seek immediate care should your symptoms persist or get worse - Discharge Plan *PRESCRIPTION DRUG MONITORING PROGRAM REVIEWED*: Yes *COPY OF PRESCRIPTION DRUG MONITORING REPORT IN PATIENT PETTY: Yes Prescriptions/Med Rec: Aspirin 81 mg PO DAILY #30 tab.chew Empagliflozin [Jardiance] 25 mg PO DAILY #30 tablet fentaNYL [Duragesic] 25 mcg TD ASDIRECTED #2 patch.td72 Liraglutide [Victoza 3-Ryne] 18 mg SUBCUT ASDIRECTED #1 pen Metoprolol Tartrate 25 mg PO BID #60 tablet Naloxone HCl [Narcan] 4 mg NS ASDIRECTED PRN #1 spray PRN Reason: Opioid Overdose and Unresponsi Polyethylene Glycol 3350 [MiraLAX] 17 gm PO BID PRN #6 packet PRN Reason: Constipation Pravastatin [Pravachol] 40 mg PO BEDTIME #30 tablet Home Medications: Home Meds Adalimumab [Humira] 40 mg INJECT ASDIRECTED 10/30/17 [History] Albuterol [Ventolin HFA] 1 - 2 puff INH ASDIRECTED PRN 10/30/17 [History] Calcium Carbonate [Calcium] 1,000 mg PO DAILY 10/30/17 [History] Cholecalciferol (Vitamin D3) [Vitamin D3] 10,000 unit PO DAILY 10/30/17 [History ] Cyclobenzaprine [Flexeril] 10 mg PO DAILY 10/30/17 [History] Folic Acid 3 mg PO DAILY 10/30/17 [History] Hydrocortisone 30 mg PO TID 10/30/17 [History] Leflunomide 20 mg PO SUTUWETHSA 10/30/17 [History] Omeprazole 20 mg PO BID 10/30/17 [History] Sennosides/Docusate Sodium [Senna-S] 8.6 mg PO ASDIRECTED 10/30/17 [History] Tamsulosin [Flomax] 0.4 mg PO DAILY 10/30/17 [History] Valsartan 320 mg PO DAILY 10/30/17 [History] oxyCODONE 15 mg PO Q4H 10/30/17 [History] oxyCODONE HCl [oxyCODONE] 30 mg PO Q5H 10/30/17 [History] Leflunomide 40 mg PO MOFR 10/31/17 [History] Potassium Chloride [Klor-Con M20] 20 meq PO BID 10/31/17 [History] Pregabalin [Lyrica] 150 mg PO DAILY 10/31/17 [History] Aspirin 81 mg PO DAILY #30 tab.chew 11/01/17 [Rx] Empagliflozin [Jardiance] 25 mg PO DAILY #30 tablet 11/01/17 [Rx] Liraglutide [Victoza 3-Ryne] 18 mg SUBCUT ASDIRECTED #1 pen 11/01/17 [Rx] Metoprolol Tartrate 25 mg PO BID #60 tablet 11/01/17 [Rx] Naloxone HCl [Narcan] 4 mg NS ASDIRECTED PRN #1 spray 11/01/17 [Rx] Polyethylene Glycol 3350 [MiraLAX] 17 gm PO BID PRN #6 packet 11/01/17 [Rx] Pravastatin [Pravachol] 40 mg PO BEDTIME #30 tablet 11/01/17 [Rx] Rivaroxaban [Xarelto] 1 tab PO DAILY #30 tablet 11/01/17 [Rx] Verapamil [Calan SR] 180 mg PO BID #0 11/01/17 [Rx] fentaNYL [Duragesic] 25 mcg TD ASDIRECTED #2 patch.td72 11/01/17 [Rx] Patient Handouts: Opioid Pain Medicine Information, Type 2 Diabetes Mellitus, Diagnosis, Adult, [id number], Atrial Fibrillation, [id number], Obesity, Adult, Rxfu-[id number], Preventing Unhealthy Weight Gain, Adult Referrals: PCP,None [Primary Care Provider] - - Discharge Summary/Plan Comment DC Time >30 min.: Yes (45) - General Info Date of Service: 11/01/17 Admission Dx/Problem (Free Text: Admission Diagnosis/Problem Admission Diagnosis/Problem Atrial fibrillation Subjective Update: In to see Chandan. Functional Status: Reports: Pain Controlled, Tolerating Diet, Ambulating, Urinating - Review of Systems General: Reports: No Symptoms. Denies: Fever, Weakness HEENT: Reports: No Symptoms Pulmonary: Reports: No Symptoms. Denies: Shortness of Breath, Cough Cardiovascular: Reports: No Symptoms. Denies: Chest Pain, Palpitations Gastrointestinal: Reports: No Symptoms. Denies: Abdominal Pain, Constipation, Diarrhea, Nausea, Vomiting Genitourinary: Reports: No Symptoms. Denies: Dysuria, Frequency, Burning Musculoskeletal: Reports: No Symptoms, Joint Pain (Chronic with hx of RA ) Skin: Reports: No Symptoms Neurological: Reports: No Symptoms. Denies: Confusion, Dizziness, Headache Psychiatric: Reports: No Symptoms. Denies: Confusion, Depression, Anxiety - Patient Data Vitals - Most Recent: Last Vital Signs Temp 97.4 F 11/01/17 09:00 Pulse 136 H 11/01/17 12:51 Resp 16 11/01/17 09:00 BP 149/91 H 11/01/17 12:51 Pulse Ox 98 11/01/17 09:00 Weight - Most Recent: 126.915 kg I&O - Last 24 hours: Intake & Output 10/31/17 11/01/17 11/01/17 22:59 06:59 14:59 Intake Total 2019 500 550 Balance 2019 500 550 Lab Results - Last 24 hrs: Laboratory Results - last 24 hr 10/31/17 10/31/17 10/31/17 Range/Units 13:34 17:30 21:07 WBC (4.23-9.07) K/mm3 RBC (4.63-6.08) M/mm3 Hgb (13.7-17.5) gm/L Hct (40.1-51.0) % MCV (79.0-92.2) fl MCH (25.7-32.2) pg MCHC (32.2-35.5) g/dl RDW Std Deviation (35.1-43.9) fL Plt Count (163-337) K/mm3 MPV (9.4-12.3) fl Neut % (Auto) (34.0-67.9) % Lymph % (Auto) (21.8-53.1) % [place] % (Auto) (5.3-12.2) % Eos % (Auto) (0.8-7.0) Baso % (Auto) (0.1-1.2) % Neut # (Auto) (1.78-5.38) K/mm3 Lymph # (Auto) (1.32-3.57) K/mm3 [place] # (Auto) (0.30-0.82) K/mm3 Eos # (Auto) (0.04-0.54) K/mm3 Baso # (Auto) (0.01-0.08) K/mm3 Sodium (136-145) mEq/L Potassium (3.5-5.1) mEq/L Chloride (98-107) mEq/L Carbon Dioxide (21-32) mEq/L Anion Gap (5-15) BUN (7-18) mg/dL Creatinine (0.7-1.3) mg/dL Est Cr Clr Drug Dosing mL/min Estimated GFR (MDRD) (>60) mL/min BUN/Creatinine Ratio (14-18) Glucose (80-115) mg/dL POC Glucose 150 H 264 H 314 H (80-115) mg/dL Calcium (8.5-10.1) mg/dL Triglycerides (<150) mg/dL Cholesterol (<200) mg/dL LDL Cholesterol Direct (<100) mg/dL HDL Cholesterol (40-59) mg/dL 11/01/17 11/01/17 11/01/17 Range/Units 05:35 05:35 05:42 WBC 9.50 H (4.23-9.07) K/mm3 RBC 5.10 (4.63-6.08) M/mm3 Hgb 14.5 (13.7-17.5) gm/L Hct 41.9 (40.1-51.0) % MCV 82.2 (79.0-92.2) fl MCH 28.4 (25.7-32.2) pg MCHC 34.6 (32.2-35.5) g/dl RDW Std Deviation 45.2 H (35.1-43.9) fL Plt Count 177 (163-337) K/mm3 MPV 10.9 (9.4-12.3) fl Neut % (Auto) 65.9 (34.0-67.9) % Lymph % (Auto) 25.2 (21.8-53.1) % [place] % (Auto) 8.2 (5.3-12.2) % Eos % (Auto) 0.3 L (0.8-7.0) Baso % (Auto) 0.1 (0.1-1.2) % Neut # (Auto) 6.26 H (1.78-5.38) K/mm3 Lymph # (Auto) 2.39 (1.32-3.57) K/mm3 [place] # (Auto) 0.78 (0.30-0.82) K/mm3 Eos # (Auto) 0.03 L (0.04-0.54) K/mm3 Baso # (Auto) 0.01 (0.01-0.08) K/mm3 Sodium 141 (136-145) mEq/L Potassium 3.7 (3.5-5.1) mEq/L Chloride 103 (98-107) mEq/L Carbon Dioxide 28 (21-32) mEq/L Anion Gap 13.7 (5-15) BUN 23 H (7-18) mg/dL Creatinine 1.1 (0.7-1.3) mg/dL Est Cr Clr Drug Dosing 77.40 mL/min Estimated GFR (MDRD) > 60 (>60) mL/min BUN/Creatinine Ratio 20.9 H (14-18) Glucose 210 H (80-115) mg/dL POC Glucose 234 H (80-115) mg/dL Calcium 8.7 (8.5-10.1) mg/dL Triglycerides 116 (<150) mg/dL Cholesterol 154 (<200) mg/dL LDL Cholesterol Direct 74 (<100) mg/dL HDL Cholesterol 58.0 (40-59) mg/dL Med Orders - Current: Current Medications Acetaminophen (Tylenol) 650 mg PO Q4H PRN PRN Reason: Pain (Mild 1-3)/fever Albuterol (Proventil Hfa) 0 gm INH ASDIRECTED PRN PRN Reason: Wheezing Albuterol/Ipratropium (Duoneb 3.0-0.5 Mg/3 Ml) 3 ml NEB Q4H PRN PRN Reason: Shortness Of Breath/wheezing Bisacodyl (Dulcolax) 5 mg PO DAILY PRN PRN Reason: Constipation Calcium Carbonate/Glycine (Tums) 1,000 mg PO DAILY [facility] Last Admin: 11/01/17 09:36 Dose: Not Given Cholecalciferol (Vitamin D3) 10,000 unit PO DAILY [facility] Last Admin: 11/01/17 09:24 Dose: 10,000 unit Cyclobenzaprine HCl (Flexeril) 10 mg PO BEDTIME PRN PRN Reason: MUSCLE SPASMS Folic Acid (Folic Acid) 3 mg PO DAILY [facility] Last Admin: 11/01/17 09:22 Dose: 3 mg Hydrocortisone (Cortef) 30 mg PO TID [facility] Hydromorphone HCl (Dilaudid) 0.5 mg IVPUSH Q2H PRN PRN Reason: Pain (severe 7-10) Last Admin: 11/01/17 06:32 Dose: 0.5 mg Promethazine HCl 6.25 mg/ (Sodium Chloride) 50.25 mls @ 100 mls/hr IV Q6H PRN PRN Reason: Nausea/Vomiting Insulin Aspart (Novolog) 0 unit SUBCUT QIDACANDBED [facility]; Protocol Last Admin: 11/01/17 11:56 Dose: 3 unit Losartan Potassium (Cozaar) 150 mg PO DAILY [facility] Last Admin: 11/01/17 09:25 Dose: 150 mg Magnesium Hydroxide (Milk Of Magnesia) 30 ml PO Q12H PRN PRN Reason: Constipation Metoprolol Tartrate (Lopressor) 5 mg IVPUSH Q4H PRN PRN Reason: Tachycardia Last Admin: 11/01/17 12:51 Dose: 5 mg Oxycodone HCl (Oxycodone) 45 mg PO Q4H [facility] Last Admin: 11/01/17 12:51 Dose: 45 mg Pantoprazole Sodium (Protonix) 40 mg PO BID [facility] Last Admin: 11/01/17 09:22 Dose: 40 mg Leflunomide 20 Mg 0 each PO SuTuWeThSa [facility] Last Admin: 11/01/17 09:25 Dose: Not Given Leflunomide 20 Mg 0 each PO MoFr [facility] Last Admin: 10/31/17 12:05 Dose: Not Given Polyethylene Glycol (Miralax) 17 gm PO DAILY PRN PRN Reason: Constipation Potassium Chloride (Klor-Con 10) 10 meq PO BID [facility] Last Admin: 11/01/17 09:22 Dose: 10 meq Prednisone (Prednisone) 20 mg PO DAILY [facility] Stop: 11/04/17 12:01 Last Admin: 11/01/17 09:24 Dose: 20 mg Pregabalin (Lyrica) 150 mg PO DAILY [facility] Last Admin: 11/01/17 09:24 Dose: 150 mg Promethazine HCl (Phenergan) 25 mg PO Q6H PRN PRN Reason: Nausea/Vomiting Rivaroxaban (Xarelto) 15 mg PO DAILY [facility] Last Admin: 11/01/17 09:26 Dose: 15 mg Senna/Docusate Sodium (Senna Plus) 1 tab PO BID PRN PRN Reason: Constipation Last Admin: 10/31/17 10:59 Dose: 1 tab Senna/Docusate Sodium (Senna Plus) 1 tab PO BID [facility] Last Admin: 11/01/17 09:24 Dose: 1 tab Tamsulosin HCl (Flomax) 0.4 mg PO DAILY [facility] Last Admin: 11/01/17 09:23 Dose: 0.4 mg Temazepam (Restoril) 7.5 mg PO BEDTIME PRN PRN Reason: Sleep Torsemide (Demadex) 100 mg PO DAILY [facility] Last Admin: 11/01/17 09:23 Dose: 100 mg Verapamil HCl (Calan Sr) 180 mg PO BID [facility] Last Admin: 11/01/17 09:22 Dose: 180 mg Discontinued Medications Cyclobenzaprine HCl (Flexeril) 10 mg PO DAILY [facility] Last Admin: 10/31/17 10:59 Dose: 10 mg Diltiazem HCl (Diltiazem) 20 mg IVPUSH ONETIME ONE Stop: 10/31/17 00:57 Last Admin: 10/31/17 01:10 Dose: 20 mg Diltiazem HCl (Diltiazem) Confirm Administered Dose 125 mg .ROUTE .STK-MED ONE Stop: 10/31/17 01:04 Last Admin: 10/31/17 01:10 Dose: Not Given Diltiazem HCl (Diltiazem) 10 mg IVPUSH ONETIME ONE Stop: 10/31/17 02:26 Last Admin: 10/31/17 02:42 Dose: 10 mg Docusate Sodium (Colace) 100 mg PO BID PRN PRN Reason: Constipation Fluconazole (Diflucan) 200 mg PO DAILY [facility] Last Admin: 11/01/17 00:47 Dose: Not Given Furosemide (Lasix) 40 mg IVPUSH NOW ONE Stop: 10/31/17 05:04 Last Admin: 10/31/17 05:10 Dose: 40 mg Metoprolol Tartrate 5 mg/ (Sodium Chloride) 55 mls @ 100 mls/hr IV ONETIME ONE Stop: 10/31/17 06:37 Last Admin: 10/31/17 06:16 Dose: Not Given Metoprolol Tartrate (Lopressor) 5 mg IVPUSH ONETIME ONE Stop: 10/31/17 06:09 Last Admin: 10/31/17 06:17 Dose: 5 mg Oxycodone HCl (Oxycodone) 30 mg PO ONETIME ONE Stop: 10/31/17 01:33 Last Admin: 10/31/17 01:39 Dose: 30 mg Oxycodone HCl (Oxycodone) 30 mg PO Q4H PRN PRN Reason: Pain Last Admin: 10/31/17 09:36 Dose: 30 mg Oxycodone HCl (Oxycodone) 15 mg PO Q4HR [facility] Last Admin: 10/31/17 14:03 Dose: 15 mg Oxycodone HCl (Oxycodone) 30 mg PO Q4HR [facility] Last Admin: 10/31/17 14:04 Dose: 30 mg Oxycodone HCl (Oxycodone) 15 mg PO Q4HR [facility] Oxycodone HCl (Oxycodone) 30 mg PO Q4HR [facility] Oxycodone HCl (Oxycodone) 30 mg PO Q4H PRN PRN Reason: Pain Potassium Chloride (Klor-Con M20) 20 meq PO ONETIME ONE Stop: 10/31/17 05:04 Last Admin: 10/31/17 05:10 Dose: 20 meq Senna/Docusate Sodium (Senna Plus) 1 tab PO DAILY [facility] Tamsulosin HCl (Flomax) 0.4 mg PO DAILY [facility] Last Admin: 10/31/17 08:29 Dose: 0.4 mg Verapamil HCl (Calan Sr) 240 mg PO ONETIME ONE Stop: 10/31/17 02:23 Last Admin: 10/31/17 02:40 Dose: 240 mg Verapamil HCl (Calan Sr) 240 mg PO BID [facility] Last Admin: 10/31/17 08:29 Dose: 240 mg - Exam Quality Assessment: Reports: DVT Prophylaxis. Denies: Supplemental Oxygen General: Reports: Alert, Oriented, Cooperative, No Acute Distress HEENT: Reports: Pupils Equal, Pupils Reactive, EOMI, Mucous Membr. Moist/[place] Neck: Reports: Supple, Trachea Midline. Denies: Lymphadenopathy Lungs: Reports: Normal Respiratory Effort, Wheezing (mild, scattered inspiratory and expiratory that are improved since admission ) Cardiovascular: Reports: Regular Rate, Regular Rhythm, No Murmurs GI/Abdominal Exam: Normal Bowel Sounds, Soft (obese), Non-Tender, No Distention (Male) Exam: Deferred Rectal (Males) Exam: Deferred Back Exam: Reports: Normal Inspection, Full Range of Motion Extremities: Normal Inspection, Normal Range of Motion, Non-Tender, Pedal Edema (trace-1+ b/l LE ) Skin: Reports: Warm, Dry, Intact Neurological: Reports: No New Focal Deficit, Strength Equal Bilateral, Cranial Nerves Intact (grossly) Psy/Mental Status: Reports: Alert, Normal Affect, Normal Mood <Remy Nice T - Last Filed: 11/01/17 16:32> Discharge Summary - Discharge Diagnosis/Problem(s) (1) New onset type 2 diabetes mellitus SNOMED Code(s): 29191376 ICD Code: E11.9 - TYPE 2 DIABETES MELLITUS WITHOUT COMPLICATIONS Status: Acute (2) Elevated brain natriuretic peptide (BNP) level SNOMED Code(s): 648806789, 595457736 ICD Code: R79.89 - OTHER SPECIFIED ABNORMAL FINDINGS OF BLOOD CHEMISTRY Status: Acute (3) Renal insufficiency SNOMED Code(s): 324899223, 760411270 ICD Code: N28.9 - DISORDER OF KIDNEY AND URETER, UNSPECIFIED Status: Resolved (4) Atrial fibrillation with RVR SNOMED Code(s): 383398330667215 ICD Code: I48.91 - UNSPECIFIED ATRIAL FIBRILLATION Status: Resolved (5) Leukocytosis SNOMED Code(s): 449941359, 986653951 ICD Code: D72.829 - ELEVATED WHITE BLOOD CELL COUNT, UNSPECIFIED Status: Resolved Qualifiers: Leukocytosis type: unspecified Qualified Code(s): D72.829 - Elevated white blood cell count, unspecified (6) Opioid dependence SNOMED Code(s): 92357014 ICD Code: F11.20 - OPIOID DEPENDENCE, UNCOMPLICATED Status: Chronic Qualifiers: Substance use status: uncomplicated Qualified Code(s): F11.20 - Opioid dependence, uncomplicated (7) Rheumatoid arthritis in remission SNOMED Code(s): 079854613449700 ICD Code: OQJ5315 - Status: Chronic (8) Chronic low back pain with sciatica SNOMED Code(s): 893389221 ICD Code: M54.40 - LUMBAGO WITH SCIATICA, UNSPECIFIED SIDE; G89.29 - OTHER CHRONIC PAIN Status: Chronic Qualifiers: Back pain laterality: bilateral Sciatica laterality: sciatica laterality unspecified Qualified Code(s): M54.40 - Lumbago with sciatica, unspecified side; G89.29 - Other chronic pain (9) Obesity (BMI 30-39.9) SNOMED Code(s): 889092738, 650033755 ICD Code: E66.9 - OBESITY, UNSPECIFIED Status: Chronic (10) Caffeine adverse reaction SNOMED Code(s): 494250703 ICD Code: T43.615A - ADVERSE EFFECT OF CAFFEINE, INITIAL ENCOUNTER Status: Resolved Qualifiers: Encounter type: initial encounter Qualified Code(s): T43.615A - Adverse effect of caffeine, initial encounter - Patient Summary/Data Consults: Consultations 10/31/17 09:44 Consult to Case Management [CONS] Routine Consult to Sludge Mill Operator [CONS] Routine Consult to Blasting Contract Miner [CONS] Routine 10/31/17 13:37 Consult to Natural Resources Instructor [Consult to Diabetic Nurse Specialist] [CONS] Routine Hospital Course: The patient was seen and examined at bedside in concert with the PA student. The discharge assessment and plans were discussed and agreed upon with me. - Patient Data Vitals - Most Recent: Last Vital Signs Temp 36.3 C 11/01/17 09:00 Pulse 98 11/01/17 14:51 Resp 16 11/01/17 09:00 BP 146/95 H 11/01/17 13:55 Pulse Ox 98 11/01/17 09:00 I&O - Last 24 hours: Intake & Output 11/01/17 11/01/17 11/01/17 06:59 14:59 22:59 Intake Total 500 1370 Balance 500 1370 Lab Results - Last 24 hrs: Laboratory Results - last 24 hr 10/31/17 10/31/17 11/01/17 Range/Units 17:30 21:07 05:35 WBC 9.50 H (4.23-9.07) K/mm3 RBC 5.10 (4.63-6.08) M/mm3 Hgb 14.5 (13.7-17.5) gm/L Hct 41.9 (40.1-51.0) % MCV 82.2 (79.0-92.2) fl MCH 28.4 (25.7-32.2) pg MCHC 34.6 (32.2-35.5) g/dl RDW Std Deviation 45.2 H (35.1-43.9) fL Plt Count 177 (163-337) K/mm3 MPV 10.9 (9.4-12.3) fl Neut % (Auto) 65.9 (34.0-67.9) % Lymph % (Auto) 25.2 (21.8-53.1) % [place] % (Auto) 8.2 (5.3-12.2) % Eos % (Auto) 0.3 L (0.8-7.0) Baso % (Auto) 0.1 (0.1-1.2) % Neut # (Auto) 6.26 H (1.78-5.38) K/mm3 Lymph # (Auto) 2.39 (1.32-3.57) K/mm3 [place] # (Auto) 0.78 (0.30-0.82) K/mm3 Eos # (Auto) 0.03 L (0.04-0.54) K/mm3 Baso # (Auto) 0.01 (0.01-0.08) K/mm3 Sodium (136-145) mEq/L Potassium (3.5-5.1) mEq/L Chloride (98-107) mEq/L Carbon Dioxide (21-32) mEq/L Anion Gap (5-15) BUN (7-18) mg/dL Creatinine (0.7-1.3) mg/dL Est Cr Clr Drug Dosing mL/min Estimated GFR (MDRD) (>60) mL/min BUN/Creatinine Ratio (14-18) Glucose (80-115) mg/dL POC Glucose 264 H 314 H (80-115) mg/dL Calcium (8.5-10.1) mg/dL Triglycerides (<150) mg/dL Cholesterol (<200) mg/dL LDL Cholesterol Direct (<100) mg/dL HDL Cholesterol (40-59) mg/dL 11/01/17 11/01/17 Range/Units 05:35 05:42 WBC (4.23-9.07) K/mm3 RBC (4.63-6.08) M/mm3 Hgb (13.7-17.5) gm/L Hct (40.1-51.0) % MCV (79.0-92.2) fl MCH (25.7-32.2) pg MCHC (32.2-35.5) g/dl RDW Std Deviation (35.1-43.9) fL Plt Count (163-337) K/mm3 MPV (9.4-12.3) fl Neut % (Auto) (34.0-67.9) % Lymph % (Auto) (21.8-53.1) % [place] % (Auto) (5.3-12.2) % Eos % (Auto) (0.8-7.0) Baso % (Auto) (0.1-1.2) % Neut # (Auto) (1.78-5.38) K/mm3 Lymph # (Auto) (1.32-3.57) K/mm3 [place] # (Auto) (0.30-0.82) K/mm3 Eos # (Auto) (0.04-0.54) K/mm3 Baso # (Auto) (0.01-0.08) K/mm3 Sodium 141 (136-145) mEq/L Potassium 3.7 (3.5-5.1) mEq/L Chloride 103 (98-107) mEq/L Carbon Dioxide 28 (21-32) mEq/L Anion Gap 13.7 (5-15) BUN 23 H (7-18) mg/dL Creatinine 1.1 (0.7-1.3) mg/dL Est Cr Clr Drug Dosing 77.40 mL/min Estimated GFR (MDRD) > 60 (>60) mL/min BUN/Creatinine Ratio 20.9 H (14-18) Glucose 210 H (80-115) mg/dL POC Glucose 234 H (80-115) mg/dL Calcium 8.7 (8.5-10.1) mg/dL Triglycerides 116 (<150) mg/dL Cholesterol 154 (<200) mg/dL LDL Cholesterol Direct 74 (<100) mg/dL HDL Cholesterol 58.0 (40-59) mg/dL Med Orders - Current: Current Medications Discontinued Medications Acetaminophen (Tylenol) 650 mg PO Q4H PRN PRN Reason: Pain (Mild 1-3)/fever Albuterol (Proventil Hfa) 0 gm INH ASDIRECTED PRN PRN Reason: Wheezing Albuterol/Ipratropium (Duoneb 3.0-0.5 Mg/3 Ml) 3 ml NEB Q4H PRN PRN Reason: Shortness Of Breath/wheezing Bisacodyl (Dulcolax) 5 mg PO DAILY PRN PRN Reason: Constipation Calcium Carbonate/Glycine (Tums) 1,000 mg PO DAILY [facility] Last Admin: 11/01/17 09:36 Dose: Not Given Cholecalciferol (Vitamin D3) 10,000 unit PO DAILY [facility] Last Admin: 11/01/17 09:24 Dose: 10,000 unit Cyclobenzaprine HCl (Flexeril) 10 mg PO DAILY [facility] Last Admin: 10/31/17 10:59 Dose: 10 mg Cyclobenzaprine HCl (Flexeril) 10 mg PO BEDTIME PRN PRN Reason: MUSCLE SPASMS Diltiazem HCl (Diltiazem) 20 mg IVPUSH ONETIME ONE Stop: 10/31/17 00:57 Last Admin: 10/31/17 01:10 Dose: 20 mg Diltiazem HCl (Diltiazem) Confirm Administered Dose 125 mg .ROUTE .STK-MED ONE Stop: 10/31/17 01:04 Last Admin: 10/31/17 01:10 Dose: Not Given Diltiazem HCl (Diltiazem) 10 mg IVPUSH ONETIME ONE Stop: 10/31/17 02:26 Last Admin: 10/31/17 02:42 Dose: 10 mg Diltiazem HCl (Diltiazem) 10 mg IV ONETIME ONE Stop: 11/01/17 13:37 Last Admin: 11/01/17 13:56 Dose: 10 mg Docusate Sodium (Colace) 100 mg PO BID PRN PRN Reason: Constipation Fluconazole (Diflucan) 200 mg PO DAILY [facility] Last Admin: 11/01/17 00:47 Dose: Not Given Folic Acid (Folic Acid) 3 mg PO DAILY [facility] Last Admin: 11/01/17 09:22 Dose: 3 mg Furosemide (Lasix) 40 mg IVPUSH NOW ONE Stop: 10/31/17 05:04 Last Admin: 10/31/17 05:10 Dose: 40 mg Hydrocortisone (Cortef) 30 mg PO TID [facility] Hydromorphone HCl (Dilaudid) 0.5 mg IVPUSH Q2H PRN PRN Reason: Pain (severe 7-10) Last Admin: 11/01/17 06:32 Dose: 0.5 mg Metoprolol Tartrate 5 mg/ (Sodium Chloride) 55 mls @ 100 mls/hr IV ONETIME ONE Stop: 10/31/17 06:37 Last Admin: 10/31/17 06:16 Dose: Not Given Promethazine HCl 6.25 mg/ (Sodium Chloride) 50.25 mls @ 100 mls/hr IV Q6H PRN PRN Reason: Nausea/Vomiting Insulin Aspart (Novolog) 0 unit SUBCUT QIDACANDBED [facility]; Protocol Last Admin: 11/01/17 11:56 Dose: 3 unit Losartan Potassium (Cozaar) 150 mg PO DAILY [facility] Last Admin: 11/01/17 09:25 Dose: 150 mg Magnesium Hydroxide (Milk Of Magnesia) 30 ml PO Q12H PRN PRN Reason: Constipation Metoprolol Tartrate (Lopressor) 5 mg IVPUSH ONETIME ONE Stop: 10/31/17 06:09 Last Admin: 10/31/17 06:17 Dose: 5 mg Metoprolol Tartrate (Lopressor) 5 mg IVPUSH Q4H PRN PRN Reason: Tachycardia Last Admin: 11/01/17 12:51 Dose: 5 mg Metoprolol Tartrate (Lopressor) 50 mg PO ONETIME ONE Stop: 11/01/17 13:37 Last Admin: 11/01/17 13:55 Dose: 50 mg Oxycodone HCl (Oxycodone) 30 mg PO ONETIME ONE Stop: 10/31/17 01:33 Last Admin: 10/31/17 01:39 Dose: 30 mg Oxycodone HCl (Oxycodone) 30 mg PO Q4H PRN PRN Reason: Pain Last Admin: 10/31/17 09:36 Dose: 30 mg Oxycodone HCl (Oxycodone) 15 mg PO Q4HR [facility] Last Admin: 10/31/17 14:03 Dose: 15 mg Oxycodone HCl (Oxycodone) 30 mg PO Q4HR [facility] Last Admin: 10/31/17 14:04 Dose: 30 mg Oxycodone HCl (Oxycodone) 15 mg PO Q4HR [facility] Oxycodone HCl (Oxycodone) 30 mg PO Q4HR [facility] Oxycodone HCl (Oxycodone) 30 mg PO Q4H PRN PRN Reason: Pain Oxycodone HCl (Oxycodone) 45 mg PO Q4H [facility] Last Admin: 11/01/17 12:51 Dose: 45 mg Pantoprazole Sodium (Protonix) 40 mg PO BID [facility] Last Admin: 11/01/17 09:22 Dose: 40 mg Leflunomide 20 Mg 0 each PO SuTuWeThSa [facility] Last Admin: 11/01/17 09:25 Dose: Not Given Leflunomide 20 Mg 0 each PO MoFr [facility] Last Admin: 10/31/17 12:05 Dose: Not Given Polyethylene Glycol (Miralax) 17 gm PO DAILY PRN PRN Reason: Constipation Potassium Chloride (Klor-Con M20) 20 meq PO ONETIME ONE Stop: 10/31/17 05:04 Last Admin: 10/31/17 05:10 Dose: 20 meq Potassium Chloride (Klor-Con 10) 10 meq PO BID [facility] Last Admin: 11/01/17 09:22 Dose: 10 meq Prednisone (Prednisone) 20 mg PO DAILY [facility] Stop: 11/04/17 12:01 Last Admin: 11/01/17 09:24 Dose: 20 mg Pregabalin (Lyrica) 150 mg PO DAILY [facility] Last Admin: 11/01/17 09:24 Dose: 150 mg Promethazine HCl (Phenergan) 25 mg PO Q6H PRN PRN Reason: Nausea/Vomiting Rivaroxaban (Xarelto) 15 mg PO DAILY [facility] Last Admin: 11/01/17 09:26 Dose: 15 mg Senna/Docusate Sodium (Senna Plus) 1 tab PO BID PRN PRN Reason: Constipation Last Admin: 10/31/17 10:59 Dose: 1 tab Senna/Docusate Sodium (Senna Plus) 1 tab PO DAILY [facility] Senna/Docusate Sodium (Senna Plus) 1 tab PO BID [facility] Last Admin: 11/01/17 09:24 Dose: 1 tab Tamsulosin HCl (Flomax) 0.4 mg PO DAILY [facility] Last Admin: 10/31/17 08:29 Dose: 0.4 mg Tamsulosin HCl (Flomax) 0.4 mg PO DAILY [facility] Last Admin: 11/01/17 09:23 Dose: 0.4 mg Temazepam (Restoril) 7.5 mg PO BEDTIME PRN PRN Reason: Sleep Torsemide (Demadex) 100 mg PO DAILY [facility] Last Admin: 11/01/17 09:23 Dose: 100 mg Verapamil HCl (Calan Sr) 240 mg PO ONETIME ONE Stop: 10/31/17 02:23 Last Admin: 10/31/17 02:40 Dose: 240 mg Verapamil HCl (Calan Sr) 240 mg PO BID [facility] Last Admin: 10/31/17 08:29 Dose: 240 mg Verapamil HCl (Calan Sr) 180 mg PO BID [facility] Last Admin: 11/01/17 09:22 Dose: 180 mg
[2017-11-01] MEDS ORDERED: Diltiazem 125 MG/25 ML SDV IV ONE (13:36)
[2017-11-01] MEDS ORDERED: Metoprolol Tartrate 50 MG Tab PO ONE (13:36)
== END 2017-11-01 15:20 | disposition home or self-care (01) | DRG 201 ==
LOC: JD.ED 00:31 → JD.ICU 05:05
PROVIDERS: ADMIT Internal Medicine; ATTEND Internal Medicine
DX: I48.91 Unspecified atrial fibrillation (principal); D80.1 Nonfamilial hypogammaglobulinemia; E27.1 Primary adrenocortical insufficiency; E11.65 Type 2 diabetes mellitus with hyperglycemia; F11.20 Opioid dependence, uncomplicated; I10 Essential (primary) hypertension; M06.9 Rheumatoid arthritis, unspecified; J45.909 Unspecified asthma, uncomplicated; G47.30 Sleep apnea, unspecified; K21.9 Gastro-esophageal reflux disease without esophagitis; D72.829 Elevated white blood cell count, unspecified; T38.0X5A Adverse effect of glucocorticoids and synthetic analogues, initial encounter; R53.1 Weakness; N28.9 Disorder of kidney and ureter, unspecified; K59.00 Constipation, unspecified; M54.42 Lumbago with sciatica, left side; M54.41 Lumbago with sciatica, right side; G89.29 Other chronic pain; T43.615A Adverse effect of caffeine, initial encounter; R79.89 Other specified abnormal findings of blood chemistry; N40.1 Benign prostatic hyperplasia with lower urinary tract symptoms; R35.0 Frequency of micturition; Z79.52 Long term (current) use of systemic steroids; E66.9 Obesity, unspecified; Z68.35 Body mass index [BMI] 35.0-35.9, adult; Z87.442 Personal history of urinary calculi; Z98.1 Arthrodesis status; Z79.01 Long term (current) use of anticoagulants; Z79.899 Other long term (current) drug therapy; Z79.82 Long term (current) use of aspirin
CPT/HCPCS: 36415; 71045; 71045-26; 80048; 80053; 80061; 82962; 83036; 83880; 84443; 84484; 85007; 85025; 85027; 85610; 85730; 93005; 93306; 96374; 96375; 96376; 99285-25; A9270-GY; J1170; J1815-GY; J1940; J3490